=== PATIENT | female | born 1935 | race Caucasian/White ===

== ENCOUNTER 2019-01-10 08:00 | Outpatient (CLI) | payer MEDICARE, BC | END 2019-01-10 23:59 | disposition home or self-care (01) | LOC: SUSANVILLE 08:00 | PROVIDERS: ATTEND Internal Medicine Cardiovascular Disease | DX: I08.3 Combined rheumatic disorders of mitral, aortic and tricuspid valves (principal); I10 Essential (primary) hypertension; R78.5 Finding of other psychotropic drug in blood | CPT/HCPCS: 93306 ==